=== PATIENT | female | born 1930 | race Caucasian/White ===

== ENCOUNTER 2016-12-24 08:13 | Emergency (ER) | payer MEDICARE ==
[2016-12-24] MEDS ORDERED: Levalbuterol 1.25MG/0.5ML NEB INH ONE (08:57)
[2016-12-24] MEDS ORDERED: Ipratropium 0.5MG/2.5ML NEB* 0.5 MG/2.5 ML NEB.SOLN INH ONE (08:58)
--- NOTE | 2016-12-24 09:06 | UC ---
Respiratory Complaint HPI - HPI Summary HPI Summary: Sudden onset of cough, dyspnea and chills last night. Some sputum. Burning sensation in ches.t Has been on Clindamycin 900mg daily for dental work. Also headache and chronic rhinorrhea. Pos for ill contact. . No sore throat. - History of Current Complaint Chief Complaint: UCRespiratory Stated Complaint: COUGH,DEGROOT,CHEST BURNING Hx Obtained From: Patient Hx Last Menstrual Period: age 43 ?: No Onset/Duration: Sudden Onset, Lasting Hours Timing: Intermittent Episodes Severity Initially: Moderate Severity Currently: Moderate Pain Intensity: 0 Pain Scale Used: 0-10 Numeric Character: Sputum Description: - Yellow. Aggravating Factors: Deep Breaths Alleviating Factors: Nothing - Did not use her bronchodilator. Associated Signs And Symptoms: Positive: Dyspnea, Chills, Wheezing, Nasal Congestion - Risk Factors Pulmonary Embolism Risk Factors: Negative Cardiac Risk Factors: Hypertension, Elevated Lipids Pseudomonas Risk Factors: Chronic Lung Disease Tuberculosis Risk Factors: Negative - Allergies/Home Medications Allergies/Adverse Reactions: Allergies Allergy/AdvReac Type Severity Reaction Status Date / Time Amoxicillin AdvReac Intermediate stomach Verified 12/24/16 08:30 pain Cats Allergy Difficulty Uncoded 12/24/16 08:30 Breathing/Wheezing PMH/Surg Hx/FS Hx/Imm Hx Previously Healthy: No - Copd Endocrine History Of: Denies: Diabetes, Thyroid Disease Cardiovascular History Of: Reports: Hypertension Denies: Cardiac Disorders Respiratory History Of: Reports: COPD, Asthma GI/ History Of: Denies: Ulcer - Surgical History Surgical History: Yes Surgery Procedure, Year, and Place: Appendectomy, 2012, L shoulder x 2 - Social History Alcohol Use: None Substance Use Type: None Smoking Status (MU): Former Smoker Type: Cigarettes Amount Used/How Often: <1 PPD Length of Time of Smoking/Using Tobacco: 23 Years When Did the Patient Quit Smoking/Using Tobacco: ~1983 - Immunization History Most Recent Influenza Vaccination: 2016 Review of Systems Constitutional: Chills Skin: Negative Eyes: Negative ENT: Nasal Discharge Respiratory: Shortness Of Breath, Cough, Other - chest "gomez" Cardiovascular: Negative Gastrointestinal: Negative Genitourinary: Negative Motor: Negative Neurovascular: Negative Musculoskeletal: Negative Neurological: Negative Psychological: Negative All Other Systems Reviewed And Are Negative: Yes Physical Exam Triage Information Reviewed: Yes Appearance: Well-Appearing, Well-Nourished - Mild shortness of breath. Vital Signs: Initial Vital Signs Temp 98.9 F 12/24/16 08:27 Pulse 86 12/24/16 08:27 Resp 20 12/24/16 08:27 BP 142/71 12/24/16 08:27 Pulse Ox 100 12/24/16 08:27 Vital Signs Reviewed: Yes Eye Exam: Normal Eyes: Positive: Conjunctiva Clear, Conjunctiva Inflamed ENT: Positive: Nasal drainage - clear, for several months. Dental Exam: Normal Neck: Positive: Supple, Nontender, No Lymphadenopathy Respiratory: Positive: Chest non-tender, Respiratory distress - mild, Decreased breath sounds, Wheezing - mild wheezing Cardiovascular: Positive: RRR, No Murmur, Pulses Normal, Brisk Capillary Refill Abdomen Description: Positive: Nontender, No Organomegaly, Soft Bowel Sounds: Positive: Present Musculoskeletal Exam: Normal Neurological: Positive: Alert, Muscle Tone Normal Psychological Exam: Normal Skin Exam: Normal UC Diagnostic Evaluation - Laboratory O2 Sat by Pulse Oximetry: 100 Respiratory Course/Dx - Differential Dx/Diagnosis Differential Diagnosis/HQI/PQRI: Bronchitis Provider Diagnoses: acute bronchitis Discharge - Discharge Plan Condition: Improved Disposition: HOME Prescriptions: Albuterol 2.5MG/3ML (0.083%)* [Ventolin 2.5 MG/3 ML NEB.RUMA*] 2.5 mg INH Q6H # 30 neb.ruma Albuterol HFA INHALER* [Ventolin HFA Inhaler*] 2 puff INH Q4H PRN #1 mdi PRN Reason: Shortness Of Breath Patient Education Materials: Acute Bronchitis (ED) Referrals: Sylvester Callaway DO [Primary Care Provider] - Additional Instructions: as tolerated Use the nebulizer as needed when at home. use the puffer with albuterol when needed for shortness of breath and cough when not using the nebulizer. run humidifier. Mucinex DM or plain , 1 tab every 12 hours as needed.
[2016-12-24] MEDS ORDERED: Levalbuterol 0.63MG/3ML NEB INH ONE ×2 (09:10)
[2016-12-24 10:39] VITALS: BP 146/78
== END 2016-12-24 10:40 | disposition home or self-care (01) ==
LOC: UCCORT 08:13
DX: J20.9 Acute bronchitis, unspecified (principal); Z88.1 Allergy status to other antibiotic agents; Z87.891 Personal history of nicotine dependence
CPT/HCPCS: 93005; 99212; A9270-GY; G0463; J7644

== ENCOUNTER 2016-12-25 07:42 | Emergency (ER) | payer MEDICARE ==
[2016-12-25 08:05] VITALS: BP 132/51
--- NOTE | 2016-12-25 08:33 | UC ---
Respiratory Complaint HPI - HPI Summary HPI Summary: 86 yo female seen here yesterday Since her visit yesterday she has developed fever/rigors/headache in addition to her cough/wheezing no n/v/d - History of Current Complaint Chief Complaint: UCRespiratory Stated Complaint: RECHECK SEVERE COUGH/SHORTNESS BREATH Time Seen by Provider: 12/25/16 08:24 Hx Obtained From: Patient Hx Last Menstrual Period: age 43 Onset/Duration: Sudden Onset, Lasting Days - < 48 hours Timing: Constant Severity Initially: Mild Severity Currently: Moderate Pain Intensity: 4 Pain Scale Used: 0-10 Numeric Character: Cough: Nonproductive Alleviating Factors: Nothing Associated Signs And Symptoms: Positive: Fever, Chills, Wheezing, Nasal Congestion - Allergies/Home Medications Allergies/Adverse Reactions: Allergies Allergy/AdvReac Type Severity Reaction Status Date / Time Amoxicillin AdvReac Intermediate stomach Verified 12/25/16 07:59 pain Cats Allergy Difficulty Uncoded 12/25/16 07:59 Breathing/Wheezing Home Medications: Home Medications Guaifenesin/Pseudo 600/60(NF) [Mucinex D 600/60 (NF)] 1 tab PO BID PRN 12/25/16 [History Confirmed 12/25/16] PMH/Surg Hx/FS Hx/Imm Hx Endocrine History Of: Denies: Diabetes, Thyroid Disease Cardiovascular History Of: Reports: Hypertension Denies: Cardiac Disorders Respiratory History Of: Reports: COPD, Asthma GI/ History Of: Denies: Ulcer - Surgical History Surgical History: Yes Surgery Procedure, Year, and Place: Appendectomy, 2012, L shoulder x 2 - Family History Known Family History: Positive: Hypertension - Social History Alcohol Use: None Substance Use Type: None Smoking Status (MU): Former Smoker Type: Cigarettes Amount Used/How Often: <1 PPD Length of Time of Smoking/Using Tobacco: 23 Years When Did the Patient Quit Smoking/Using Tobacco: ~1983 - Immunization History Most Recent Influenza Vaccination: 2016 Review of Systems Constitutional: Fever, Chills Skin: Negative Eyes: Negative ENT: Nasal Discharge Respiratory: Shortness Of Breath, Cough Cardiovascular: Negative Gastrointestinal: Negative Genitourinary: Negative Motor: Negative Neurovascular: Negative Musculoskeletal: Myalgia Neurological: Headache Psychological: Negative All Other Systems Reviewed And Are Negative: Yes Physical Exam Triage Information Reviewed: Yes Appearance: Well-Appearing, No Pain Distress, Well-Nourished Vital Signs: Initial Vital Signs Temp 101.2 F 12/25/16 08:01 Pulse 99 12/25/16 08:01 Resp 20 12/25/16 08:01 BP 132/51 12/25/16 08:01 Pulse Ox 98 12/25/16 08:01 Vital Signs Reviewed: Yes Eyes: Positive: Conjunctiva Clear ENT: Positive: Nasal congestion. Negative: Hearing grossly normal - bilat HAs, Tonsillar swelling, Tonsillar exudate, Trismus, Muffled/hoarse voice Dental: Negative: Cervical Lymphadenopathy Neck: Positive: Supple, Nontender. Negative: Enlarged Nodes @ Respiratory: Positive: Normal breath sounds, No respiratory distress, No accessory muscle use, Other: - wheezing with forced expiration Cardiovascular: Positive: RRR Musculoskeletal: Positive: ROM Intact, No Edema Neurological: Positive: Alert, Muscle Tone Normal Psychological Exam: Normal Skin Exam: Normal UC Diagnostic Evaluation - Laboratory O2 Sat by Pulse Oximetry: 98 - normal/not hypoxi - Radiology Xray Interpretation: No Acute Changes Radiology Interpretation Completed By: Radiologist - EKG Cardiac Rate: NL Cardiac Rhythm: Sinus: Normal ST Segment: Non-Specific - LVH with strain, unchanged from yesterday Respiratory Course/Dx - Differential Dx/Diagnosis Provider Diagnoses: Influenza Discharge - Discharge Plan Condition: Stable Disposition: HOME Prescriptions: Ondansetron TAB* [Zofran Tab*] 4 mg PO Q6H PRN #10 tab PRN Reason: Nausea Oseltamivir CAP* [Tamiflu CAP*] 75 mg PO BID #10 cap Prednisone [Deltasone] 20 mg PO DAILY #5 tab Patient Education Materials: Influenza (ED) Referrals: Sylvester Callaway DO [Primary Care Provider] - Additional Instructions: rest fluids tylenol recheck for worsening symptoms see your MD Thursday as planned
--- NOTE | 2016-12-25 08:52 | RAD ---
INDICATION: Fever and cough. COMPARISON: Comparison is made with prior chest x-ray study from April 24, 2008. TECHNIQUE: Dual-energy PA and lateral views of the chest were obtained. FINDINGS: The heart is within normal limits in size. Mediastinal and hilar contours appear within normal limits. The lungs are hyperinflated and clear. No pleural effusion is seen. IMPRESSION: FINDINGS CONSISTENT WITH COPD, NO EVIDENCE FOR ACUTE FINDING.
[2016-12-25] MEDS ORDERED: Ibuprofen TAB* 600 MG PO ONE (09:22)
== END 2016-12-25 09:36 | disposition home or self-care (01) ==
LOC: UCCORT 07:42
DX: J11.1 Influenza due to unidentified influenza virus with other respiratory manifestations (principal); Z88.1 Allergy status to other antibiotic agents; Z87.891 Personal history of nicotine dependence
CPT/HCPCS: 71020; 87502; 93005; 99212; A9270-GY; G0463

== ENCOUNTER 2017-01-03 08:45 | Emergency (ER) | payer MEDICARE ==
[2017-01-03 09:02] VITALS: BP 126/48
--- NOTE | 2017-01-03 09:16 | UC ---
Respiratory Complaint HPI - History of Current Complaint Chief Complaint: UCGeneralIllness Stated Complaint: PERSISTENT COUGH Time Seen by Provider: 01/03/17 09:04 Hx Obtained From: Patient Hx Last Menstrual Period: age 43 ?: No Onset/Duration: Gradual Onset, Lasting Weeks - 2 1/2, Still Present Timing: Constant Severity Initially: Mild Severity Currently: Moderate Character: Cough: Nonproductive Aggravating Factors: Exertion, Deep Breaths Alleviating Factors: Bronchodilator - and did have some improvement with 5 day course of prednisone. Associated Signs And Symptoms: Positive: Dyspnea, Wheezing, URI Related History: Seasonal Allergies - Risk Factors Pulmonary Embolism Risk Factors: Negative Cardiac Risk Factors: Negative Pseudomonas Risk Factors: Negative - Allergies/Home Medications Allergies/Adverse Reactions: Allergies Allergy/AdvReac Type Severity Reaction Status Date / Time Amoxicillin AdvReac Intermediate stomach Verified 01/03/17 09:01 pain Cats Allergy Difficulty Uncoded 01/03/17 09:01 Breathing/Wheezing PMH/Surg Hx/FS Hx/Imm Hx Endocrine History Of: Denies: Diabetes, Thyroid Disease Cardiovascular History Of: Reports: Hypertension Denies: Cardiac Disorders Respiratory History Of: Reports: COPD, Asthma GI/ History Of: Denies: Ulcer - Surgical History Surgical History: Yes Surgery Procedure, Year, and Place: Appendectomy, 2012, L shoulder x 2 - Family History Known Family History: Positive: Hypertension - Social History Occupation: Retired Lives: Alone Alcohol Use: None Substance Use Type: None Smoking Status (MU): Former Smoker Type: Cigarettes Amount Used/How Often: <1 PPD Length of Time of Smoking/Using Tobacco: 23 Years Have You Smoked in the Last Year: No When Did the Patient Quit Smoking/Using Tobacco: ~1983 - Immunization History Most Recent Influenza Vaccination: 2016 Review of Systems Skin: Rash - over lips Respiratory: Cough Gastrointestinal: Vomiting - post tussive emesis. All Other Systems Reviewed And Are Negative: Yes Physical Exam Triage Information Reviewed: Yes Appearance: No Pain Distress, Well-Nourished, Ill-Appearing Vital Signs: Initial Vital Signs Temp 97.4 F 01/03/17 08:54 Pulse 77 01/03/17 08:54 Resp 18 01/03/17 08:54 BP 126/48 01/03/17 08:54 Pulse Ox 95 01/03/17 08:54 Vital Signs Reviewed: Yes Eyes: Positive: Conjunctiva Clear ENT: Positive: Pharynx normal, Nasal congestion, TMs normal Neck exam: Normal Respiratory: Positive: Decreased breath sounds - mild diffuse, Wheezing - Expiratory especially with cough. Cardiovascular Exam: Normal Musculoskeletal Exam: Normal Neurological Exam: Normal Psychological Exam: Normal Skin: Positive: rashes - cold sores on the upper lip. Diagnostic Evaluation - Laboratory O2 Sat by Pulse Oximetry: 95 Respiratory Course/Dx - Differential Dx/Diagnosis Differential Diagnosis/HQI/PQRI: Exacerbation Of COPD, Lower Resp Infection, Sinusitis Provider Diagnoses: COPD with acute exacerbation. Discharge - Discharge Plan Condition: Stable Disposition: HOME Prescriptions: DOXYcycline CAP(*) [DOXYcycline 100MG CAP(*)] 100 mg PO BID #20 cap predniSONE TAB* [Deltasone TAB*] 20 mg PO DAILY #18 tab Patient Education Materials: COPD (Chronic Obstructive Pulmonary Disease) (ED) , Bronchospasm (ED), Prednisone (By mouth), Doxycycline (By mouth)
== END 2017-01-03 09:37 | disposition home or self-care (01) ==
LOC: UCCORT 08:45
DX: J44.1 Chronic obstructive pulmonary disease with (acute) exacerbation (principal); Z88.1 Allergy status to other antibiotic agents; Z87.891 Personal history of nicotine dependence
CPT/HCPCS: 99212; G0463

== ENCOUNTER 2017-02-21 08:25 | Emergency (ER) | payer MEDICARE ==
[2017-02-21 09:37] VITALS: BP 161/73
--- NOTE | 2017-02-21 09:44 | UC ---
Respiratory Complaint HPI - HPI Summary HPI Summary: triage note :"Cough started 3 days, wheezing for 2 days and worsening last night ". Had a hard time sleeping last night b/c cough and wheezing. she was dxd with the flu this season (despite flu shot) and was treated here with alb MDI and prednisone x 10 days. Sh ehas fully recovered. She used the alb last night w/o much relief. No fever. + h/o COPD per dtr. She started using flonase yesterday for PND. denies sinus pain/pressure. 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 She is here initially with her dtr Malena, and then 2nd dtr came during neb treatment. - History of Current Complaint Chief Complaint: UCRespiratory Stated Complaint: COUGH,WHEEZING (3DAYS) Time Seen by Provider: 02/21/17 09:43 Hx Last Menstrual Period: age 43 - Allergies/Home Medications Allergies/Adverse Reactions: Allergies Allergy/AdvReac Type Severity Reaction Status Date / Time Amoxicillin AdvReac Intermediate stomach Verified 02/21/17 08:53 pain Cats Allergy Difficulty Uncoded 02/21/17 08:53 Breathing/Wheezing Home Medications: Home Medications Fluticasone NASAL SPRAY 50MCG* [Flonase NASAL SPRAY 50MCG*] 2 spray BOTH NARES DAILY 02/21/17 [History Confirmed 02/21/17] PMH/Surg Hx/FS Hx/Imm Hx Previously Healthy: Yes Endocrine History Of: Denies: Diabetes, Thyroid Disease Cardiovascular History Of: Reports: Hypertension Denies: Cardiac Disorders Respiratory History Of: Reports: COPD, Asthma GI/ History Of: Denies: Ulcer - Surgical History Surgical History: Yes Surgery Procedure, Year, and Place: Appendectomy, 2012, L shoulder x 2 - Family History Known Family History: Positive: Hypertension - Social History Alcohol Use: None Substance Use Type: None Smoking Status (MU): Former Smoker Type: Cigarettes Amount Used/How Often: <1 PPD Length of Time of Smoking/Using Tobacco: 23 Years Have You Smoked in the Last Year: No When Did the Patient Quit Smoking/Using Tobacco: ~1983 - Immunization History Most Recent Influenza Vaccination: 2016 Review of Systems Constitutional: Negative Skin: Negative Eyes: Negative ENT: Other - +PND. Respiratory: Cough, Other - wheezing Cardiovascular: Negative Gastrointestinal: Negative Genitourinary: Negative Motor: Negative Neurovascular: Negative Musculoskeletal: Negative Neurological: Negative Psychological: Negative All Other Systems Reviewed And Are Negative: Yes Physical Exam Triage Information Reviewed: Yes Appearance: Well-Appearing, No Pain Distress, Well-Nourished - she looks lenka , smiling, very pleasant. Well dressed with make up. She did not cough at all during entire encounter until the end when I mentioned it. Vital Signs: Initial Vital Signs Temp 97.7 F 02/21/17 08:42 Pulse 65 02/21/17 08:42 Resp 20 02/21/17 08:42 BP 170/76 02/21/17 08:42 Pulse Ox 99 02/21/17 08:42 Vital Signs Reviewed: Yes Eye Exam: Normal ENT Exam: Normal ENT: Positive: Pharyngeal erythema - +PND, no exudate., TMs normal, Other: - no sinus tenderness. Negative: Tonsillar swelling, Tonsillar exudate, Muffled/ hoarse voice Dental Exam: Normal Neck exam: Normal Neck: Positive: Supple, Nontender, No Lymphadenopathy Respiratory Exam: Normal Respiratory: Positive: Lungs clear, No respiratory distress, No accessory muscle use, Decreased breath sounds - slight with minimal wheezing at lower lobes.. Negative: Crackles, Rhonchi, Stridor Cardiovascular Exam: Normal Cardiovascular: Positive: RRR, No Murmur, Pulses Normal, Brisk Capillary Refill Abdominal Exam: Normal Abdomen Description: Positive: Nontender, Soft Musculoskeletal Exam: Normal Neurological Exam: Normal Psychological Exam: Normal Skin Exam: Normal UC Diagnostic Evaluation - Laboratory O2 Sat by Pulse Oximetry: 97 Respiratory Course/Dx - Course Course Of Treatment: ALb neb given here with resolution of the minimal wheezing that was there and improved breath sounds to nml. No coughing, no fever, she looks great and does not appear to be ill. She verbalizes that she is usually given abx for bronchitis and I reassured them that bronchitis is considered to be viral and there are no clinical indications of any bacterial infections at this time. Malena has a neb that she can borrow. - Differential Dx/Diagnosis Differential Diagnosis/HQI/PQRI: Asthma, Bronchitis, Exacerbation Of COPD, Lower Resp Infection, Sinusitis Provider Diagnoses: Bronchitis - mild, Post nasal drip Discharge - Discharge Plan Condition: Stable Disposition: HOME Prescriptions: Albuterol 2.5MG/3ML (0.083%)* [Ventolin 2.5 MG/3 ML NEB.RUMA*] 2.5 mg INH Q4H #1 neb.ruma Benzonatate CAP* [Tessalon 100 MG CAP*] 100 mg PO TID PRN #30 cap PRN Reason: Cough Patient Education Materials: Acute Bronchitis (ED), How to Use a Nebulizer (ED) Referrals: Sylvester Callaway, [Primary Care Provider] - 3 Days Additional Instructions: We have discussed why you don't need an antibiotic, that there are no signs of bacterial infection. No pneumonia sounds in your lungs, no fever and great oxygen level. The albuterol will help open up your lungs/wheezing that you are prone to with COPD exacerbation. A humidifier may help. Avoid OTC cough meds in your age group.
[2017-02-21] MEDS ORDERED: Albuterol 2.5 MG/3 ML NEB.SOL* (0.083%) INH ONE (09:51)
== END 2017-02-21 10:46 | disposition home or self-care (01) ==
LOC: UCCORT 08:25
DX: J40 Bronchitis, not specified as acute or chronic (principal); R09.82 Postnasal drip; I10 Essential (primary) hypertension; Z88.1 Allergy status to other antibiotic agents; Z87.891 Personal history of nicotine dependence
CPT/HCPCS: 99202; G0463

== ENCOUNTER 2018-10-20 09:29 | Emergency (ER) | payer MEDICARE ==
--- OUTSIDE RECORDS SUMMARY | 2018-10-20 10:17 | XMS REPORT | Continuity of Care Document ---
:1930 External Reference #:[id number] Author Name Noemi Irwin Care Team Providers Name Role Phone Scarlett Dorado MD Primary Care Physician Unavailable Payers Type Date Identification Numbers Payment Provider Subscriber Policy Number: [id number] Medicare Aleshia Asencio PayID: [id number] [address] [place] [address] [address]: [id number] [facility] Aleshia Asencio PayID: [id number] [address] [place] [address] Advance Directives Description No Information Available Problems Date Description Provider Status Onset: 05/07/2018 Palpitations Denis Emerson M.D., [facility], [facility] Active Onset: 05/07/2018 Difficulty breathing Denis Emerson M.D., [facility] Active Onset: 02/05/2015 Impacted lanre Ibarra M.D. Active Family History Date Family Member(s) Problem(s) Comments General Heart Disease General Asthma Father due to Stroke () Mother due to Cancer () - female organs Social History Type Date Description Comments Sex Unknown Marital Status Lives With Alone Occupation Retired Cigarette Use Quit 30 Years Ago Tobacco Use Start: Unknown Never Smoked Cigars Tobacco Use Start: Unknown Never Smoked A Pipe Smokeless Tobacco Never Used Smokeless Tobacco ETOH Use Occasionally consumed wine in the past Tobacco Use Start: Unknown End: Patient is a former smoker Quit 1977 Unknown Recreational Drug Use Denies Drug Use Smoking Status Reviewed: 10/04/18 Patient is a former smoker Quit 1977 Exercise Type/Frequency Does not exercise Allergies, Adverse Reactions, Alerts Date Description Reaction Status Severity Comments 12/26/2013 Amoxicillin stomach cramps Active 04/20/2017 Augmentin Active 05/07/2018 Norvasc Active Jittery,diarrhea Medications Medication Date Status Form Strength Qnty SIG Indications Ordering Provider Toprol XL Active Tablets 25mg 1 by Unknown 000 ER 24HR mouth twice daily Aspirin 81 Active Tablets 81mg po qd Unknown 000 DR Vitamin D-1000 Active Tablets 1000Unit 1 tab po Unknown 000 qd Simvastatin Active Tablets 20mg take 1 Unknown 000 tablet every other day Multivitamin Active Tablets 1 by Unknown Adult 000 mouth every day Ventolin HFA Active Aerosol 108(90Base 2 puffs Unknown 000 ) mcg/Act by mouth four times a day as needed Zyrtec Allergy Active Tablets 10mg 1 by Unknown 000 mouth every day as needed Cyanocobalamin Active Tablets 500mcg 1 tab Unknown 000 by mouth every other day Zocor Hx Tablets 20mg 1 po qhs Unknown 000 - 017 Vitamin B-12 Hx Tablets 100mcg 1 by Unknown 000 - Sub mouth every 018 day Norvasc Hx Tablets 1 by Unknown 000 - mouth every 018 day Caltrate 600+D Hx Tablets 600-200mg- 1 tab by Unknown 000 - Unit mouth twice 018 daily Medications Administered in Office Medication Date Status Form Strength Qnty SIG Indications Ordering Provider Inj, Administered Injection Denis Mike Regadenoson, 018 Ki, 0.1 MG M.DVanessa, FACC, FASNC Technetium TC Administered Injection Denis Mike 99M 018 Claudine Emerson M.D., FACC, Per Unit Dose FASNC Up To 40 Millicuries Technetium TC Administered Injection Denis Mike 99M 018 Claudine Emerson M.D., FACC, Per Unit Dose FASNC Up To 40 Millicuries Immunizations Description No Information Available Vital Signs Date Vital Result Comment 10/04/2018 2:58pm Height 61.25 inches 5'1.25" Weight 154.00 lb BP Systolic 138 mmHg BP Diastolic 70 mmHg BMI (Body Mass Index) 28.9 kg/m2 08/02/2018 12:50pm Height 61.25 inches 5'1.25" Weight 153.25 lb with shoes Heart Rate 70 /min reg BP Systolic Sitting 130 mmHg BP Diastolic Sitting 70 mmHg BP Systolic Standing 130 mmHg BP Diastolic Standing 82 mmHg Respiratory Rate 16 /min Pain Level 0 BMI (Body Mass Index) 28.7 kg/m2 05/07/2018 1:36pm Height 61.25 inches 5'1.25" Weight 156.00 lb declined to remove shoes Heart Rate 60 /min BP Systolic 142 mmHg Ra Large Cuff BP Diastolic 72 mmHg Ra Large Cuff BP Systolic Sitting 144 mmHg LA Large Cuff BP Diastolic Sitting 76 mmHg LA Large Cuff BP Systolic Standing 116 mmHg LA Large Cuff BP Diastolic Standing 76 mmHg LA Large Cuff Respiratory Rate 16 /min Pain Level 0 O2 % BldC Oximetry 97 % BMI (Body Mass Index) 29.2 kg/m2 04/05/2018 3:04pm Height 63 inches 5'3" Weight 157.00 lb BP Systolic Sitting 116 mmHg BP Diastolic Sitting 68 mmHg Respiratory Rate 16 /min Pain Level 0 BMI (Body Mass Index) 27.8 kg/m2 09/28/2017 2:16pm Height 63 inches 5'3" Weight 157.00 lb Heart Rate 66 /min BP Systolic Sitting 124 mmHg BP Diastolic Sitting 68 mmHg Respiratory Rate 24 /min Pain Level 0 BMI (Body Mass Index) 27.8 kg/m2 04/20/2017 2:10pm Height 63 inches 5'3" Weight 157.00 lb Heart Rate 88 /min BP Systolic Sitting 122 mmHg BP Diastolic Sitting 74 mmHg Respiratory Rate 20 /min Pain Level 0 BMI (Body Mass Index) 27.8 kg/m2 10/27/2016 1:50pm Height 63 inches 5'3" Weight 159.00 lb Heart Rate 74 /min BP Systolic 122 mmHg BP Diastolic 66 mmHg BMI (Body Mass Index) 28.2 kg/m2 06/30/2016 1:24pm Height 63 inches 5'3" Weight 156.00 lb Heart Rate 76 /min BP Systolic Sitting 168 mmHg BP Diastolic Sitting 80 mmHg BMI (Body Mass Index) 27.6 kg/m2 02/18/2016 1:35pm Heart Rate 76 /min BP Systolic Sitting 120 mmHg BP Diastolic Sitting 80 mmHg 08/13/2015 1:44pm Heart Rate 70 /min BP Systolic Sitting 126 mmHg BP Diastolic Sitting 82 mmHg 02/05/2015 1:22pm Heart Rate 76 /min BP Systolic Sitting 122 mmHg BP Diastolic Sitting 80 mmHg 08/07/2014 1:08pm Heart Rate 70 /min BP Systolic Sitting 124 mmHg BP Diastolic Sitting 80 mmHg 12/26/2013 1:49pm Heart Rate 72 /min BP Systolic 124 mmHg BP Diastolic 80 mmHg Results Description No Information Available Procedures Date Code Description Status 10/04/2018 31029 Remove Impacted Cerumen Completed 07/12/2018 16067 Stress Test Completed 07/12/2018 76830 Myocardial Perfusion Imaging Tomographic (Spect) Multiple Completed Studies 05/29/2018 39808 Mobile Cardiovascular Telemetry Over 24 HR Up To 30 Days Completed 05/07/2018 72806 EKG Tracing & Interpretation Completed 04/05/2018 39504 Remove Impacted Cerumen Completed 09/28/2017 36030 Remove Impacted Cerumen Completed 04/20/2017 03561 Remove Impacted Cerumen Completed 10/27/2016 85280 Remove Impacted Cerumen Completed 06/30/2016 85068 Remove Impacted Cerumen Completed 02/18/2016 61075 Remove Impacted Cerumen Completed 08/13/2015 48167 Remove Impacted Cerumen Completed 02/05/2015 99210 Remove Impacted Cerumen Completed 08/07/2014 84862 Remove Impacted Cerumen Completed 12/26/2013 72902 Remove Impacted Cerumen Completed 08/10/2012 66150 Rad Exam; Wrist Limited, 2 Views Completed 07/26/2012 69795 Rad Exam; Wrist Limited, 2 Views Completed 07/26/2012 44551 Short Arm Cast Application Completed 07/12/2012 62388 Rad Exam; Wrist Limited, 2 Views Completed 07/05/2012 27619 Rad Exam; Wrist Limited, 2 Views Completed 07/02/2012 49434 Short Arm Cast Application Completed 07/02/2012 52829 CLST TRMT Distal Radial FX Completed Encounters Type Date Location Provider Dx Diagnosis Office Visit 08/02/2018 [facility] Denis Mike R00.2 Palpitations 1:15p Of Sesar Emerson M.D., FACC, FASNC Office Visit 05/07/2018 [facility] Denis Mike R06.00 Dyspnea, 1:30p [facility] [employer] [facility] AT [facility], unspecified Heriberto FAC, [facility] R00.2 Palpitations Plan of Treatment Future Appointment(s):04/04/2019 3:00 pm - Timoteo Ibarra M.D. at [facility]
[2018-10-20 10:56] VITALS: BP 148/61
--- NOTE | 2018-10-20 11:15 | UC ---
Respiratory Complaint HPI - HPI Summary HPI Summary: Pt presents to with cough. pt states has been present x 2 days, feels wheeze. non productive. mild sore throat. no fever, chills. no catherine, vision changes. mild nasal congestion. Pt with h/o bronchitis and pna so gets worried. No myalgia. no n/v. No rash. no change in bowel bladder. 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 Hx Last Menstrual Period: age 43 Pain Intensity: 0 - Allergies/Home Medications Allergies/Adverse Reactions: Allergies Allergy/AdvReac Type Severity Reaction Status Date / Time amoxicillin Allergy GI Upset Verified 10/20/18 10:49 Home Medications: Home Medications Simvastatin 1 tab EVERY OTHER DAY 10/20/18 [History Confirmed 10/20/18] PMH/Surg Hx/FS Hx/Imm Hx Previously Healthy: Yes Respiratory History: Bronchitis, Pneumonia - Surgical History Surgical History: Yes Surgery Procedure, Year, and Place: Appendectomy, 2012, L shoulder x 2 - Family History Known Family History: Positive: Hypertension, Non-Contributory - Social History Occupation: Retired Lives: Alone Alcohol Use: None Substance Use Type: None Smoking Status (MU): Former Smoker Type: Cigarettes Amount Used/How Often: <1 PPD Length of Time of Smoking/Using Tobacco: 23 Years Have You Smoked in the Last Year: No When Did the Patient Quit Smoking/Using Tobacco: ~1983 - Immunization History Most Recent Influenza Vaccination: 2016 Review of Systems All Other Systems Reviewed And Are Negative: Yes Constitutional: Positive: Fatigue ENT: Positive: Sore Throat, Nasal Discharge Respiratory: Positive: Cough Physical Exam - Summary Physical Exam Summary: Vital Signs Reviewed: Yes A+Ox3, no distress Eyes: Conjunctiva Clear, SEGUN. EOM intact and full ENT: Hearing grossly normal TM x 2 clear, turbiantes inflammed and boggy, + PND , mmoist, uvula midline, no exudate, no erythema Neck: Positive: Supple Respiratory: Positive: mild, intermittent cough + wheeze end exp slight ronchi right upper lobe, No respiratory distress, No accessory muscle use Cardiovascular: RRR nl s1, s2 no m/r CBT <2 sec abd soft + BS nt/nd no guarding, no distension Musculoskeletal Exam: BRONSON x 4 without difficulty Strength Intact, ROM Intact Neurological: Positive: Alert, + sensation throughout Psychological: Positive: Normal Response To Family Skin: Positive: no rash, no ecchymosis Triage Information Reviewed: Yes Vital Signs: Initial Vital Signs Temp 97.6 F 10/20/18 10:51 Pulse 62 10/20/18 10:51 Resp 16 10/20/18 10:51 BP 148/61 10/20/18 10:51 Pulse Ox 99 10/20/18 10:51 UC Diagnostic Evaluation - Laboratory O2 Sat by Pulse Oximetry: 99 - Radiology Radiology Interpretation Completed By: Radiologist - Patient Name: DONG UNDERWOOD Medical Record#: [id number] Re-Evaluation - Re-Evaluation First Eval Change: Improved - pt states feels breathing much improved following neb chest xray no infiltrate lung sounds markedly improved Rx mdi hydrate secretion precatuion steroid if sx continue x 24 hour recommend start abx pt and daughter comfortable and narciso greement with plan Respiratory Course/Dx - Course Course Of Treatment: Pt presents with 48 hours cough, wheeze, post nasal drip and fatigue. Pt denies fever, chills Pt with remote tobacco h. vss. pt with end exp wheeze. pt with ronchi right base. will give duoneb. cxr. reassess. elevated BP - recommend recheck with pcp - Differential Dx/Diagnosis Provider Diagnosis: Acute bronchitis Discharge - Sign-Out/Discharge Documenting (check all that apply): Patient Departure All imaging exams completed and their final reports reviewed: Yes - Discharge Plan Condition: Stable Disposition: HOME Prescriptions: Azithromycin TAB* [Zithromax TAB (Z-GABBY) 250 mg #6 tabs] 2 tab PO .TODAY, THEN 1 DAILY #1 gabby predniSONE TAB* [Deltasone 20 MG TAB*] 20 mg PO DAILY #5 tab Patient Education Materials: Upper Respiratory Infection (ED), Acute Bronchitis (ED) Referrals: Scarlett Dorado MD [Primary Care Provider] - Additional Instructions: -Take prednisone daily as prescribed -Use your albuterol puffer - 2 puffs every 4 hours for the next 2 days - then as needed -Stay well hydrated - avoid excess caffeine and all alcohol -Eat regular, healthy meals -Humidify the air in the room where you sleep - boil water, run a hot steam shower, vaporizer, cups of water by heat register - If you continue with cough tomorrow, develop a fever or shortness of breath - it is recommended you start the antibiotic as prescribed at this time, -- These infections are spread by secretions - do NOT share eating or drinking utensils - clean items you share with other people such as cell phones, computer mouse, TV remote, computer tablets,etc.. Once you have been antibiotics for 2 days, change your toothbrush and your pillowcase. - contact your doctor to schedule a follow-up appointment. Call your doctor, return here or go to the emergency department with any questions or concerns - Billing Disposition and Condition Condition: STABLE Disposition: Home
== END 2018-10-20 11:57 | disposition home or self-care (01) ==
LOC: UCCORT 09:29
DX: J20.9 Acute bronchitis, unspecified (principal); Z88.0 Allergy status to penicillin; Z87.891 Personal history of nicotine dependence
CPT/HCPCS: 71046; 99212; G0463

== ENCOUNTER 2019-10-19 09:37 | Emergency (ER) | payer MEDICARE ==
--- OUTSIDE RECORDS SUMMARY | 2019-10-19 09:44 | XMS REPORT | Continuity of Care Document ---
:1930 External Reference #:[id number] Author Name Evi Somers PA Address [address] [place] [id number] Care Team Providers Name Role Phone Alexa Olson-MD Zahraa - Obstetrics & Care Team Information Rf Design Engineer Gynecology Scarlett Dorado MD - Family Medicine Care Team Information Rf Design Engineer [phone] Problems Active Problems Provider Date History and physical examination, follow-up Florin Stone MD Onset: 2011 Note: s/p appendectomy Derangement of medial meniscus Evi Somers PA Onset: 04/02/2016 Localized, primary osteoarthritis Evi Somers PA Onset: 09/28/2015 Social History Type Date Description Comments Sex Unknown Tobacco Use Start: Unknown End: Quit Quit 25 years ago. Unknown ETOH Use Denies alcohol use Tobacco Use Start: Unknown End: Patient is a former Unknown smoker Recreational Drug Use Denies Drug Use Smoking Status Reviewed: 08/23/19 Patient is a former smoker Enjoy Exercising Patient enjoys exercising Allergies, Adverse Reactions, Alerts Active Allergies Reaction Severity Comments Date Augmentin projectile vomiting 05/13/2010 Amoxicillin 06/17/2012 Medications Active Medications SIG Qnty Indications Ordering Provider Date Baby Aspirin 1 po qd Unknown 81mg Chewtabs Vitamin D 1 daily Unknown 2000mg Vitamin B 12 every other day Unknown Simvastatin 1 by mouth every Unknown Tablets other day Toprol XL 1 by mouth every Unknown Tablets ER day 24HR Advil as directed Unknown 200mg Capsules Medications Administered in Office Medication SIG Qnty Indications Ordering Provider Date Depomedrol 40mg/1cc Evi Somers PA 09/07/2019 (methylprednisolone acetate) Injection Depomedrol 40mg/1cc Evi Somers PA 04/06/2019 (methylprednisolone acetate) Injection Methylprednisolone acetate Evi Somers PA 10/06/2018 (Depomedrol) 80mg injection Injection Methylprednisolone acetate Evi Somers PA 04/07/2018 (Depomedrol) 80mg injection Injection Methylprednisolone acetate Evi Somers PA 09/21/2017 (Depomedrol) 80mg injection Injection Methylprednisolone acetate Evi Somers PA 04/03/2017 (Depomedrol) 80mg injection Injection Methylprednisolone acetate Evi Somers PA 09/26/2016 (Depomedrol) 80mg injection Injection Methylprednisolone Evi Deras PA 04/02/2016 (Depomedrol) 80mg injection Injection Methylprednisolone acetate Evi Somers PA 09/28/2015 (Depomedrol) 80mg injection Injection Immunizations Description No Information Available Vital Signs Date Vital Result Comment 09/07/2019 9:47am BP Systolic Sitting Left Arm 152 mmHg BP Diastolic Sitting Left Arm 89 mmHg 04/06/2019 10:18am BP Systolic 167 mmHg BP Diastolic 81 mmHg Body Temperature 97.6 F Heart Rate 61 /min Height 60.5 inches 5'0.50" Weight 153.00 lb BMI (Body Mass Index) 29.4 kg/m2 BSA (Body Surface Area) 1.68 m2 [place] body weight in kilograms 47 kg O2 % BldC Oximetry 98 % Results Description No Information Available Procedures Date Code Description Status 09/07/2019 Asp./Injection major joint Completed 04/06/201933454 Asp./Injection major joint Completed 06/18/2011 28494743 Mammogram Completed 05/22/2010 36012627 Mammogram Completed 05/19/2009 54499043 Mammogram Completed 10/19/2003 11560175 Colonoscopy Completed Medical Devices Description No Information Available Encounters Description No Information Available Assessments Date Code Description Provider 09/07/2019 M17.12 Unilateral primary osteoarthritis, left knee Evi Somers PA 04/06/2019 M17.12 Unilateral primary osteoarthritis, left knee Evi Somers PA Plan of Treatment Future Appointment(s):02/06/2020 10:00 am - Evi Somers PA at [facility]/07/2019 - Evi Somers PAM17.12 Unilateral primary osteoarthritis, left knee Functional Status Description No Information Available Mental Status Description No Information Available Referrals Description No Information Available
--- OUTSIDE RECORDS SUMMARY | 2019-10-19 09:44 | XMS REPORT | Continuity of Care Document ---
:1930 External Reference #:[id number] Author Name Timoteo Ibarra M.D. (transmitted by agent of provider Renny Perez) Address [address] [place] [id number] Care Team Providers Name Role Phone Deyanira Velasco AU.D - Medical Chemist Care Team Information Supervisor Cell [employer] Sylvester Callaway DO - Family Care Team Information Supervisor [employer] Operation [phone] Medicine Scarlett Dorado MD - Family Medicine Care Team Information Supervisor Cell Operation [phone] Problems Active Problems Provider Date Palpitations Denis Emerson M.D., [facility], [facility] Onset: 05/07/2018 Difficulty breathing Denis Emerson M.D., [facility], [facility] Onset: 05/07/2018 Impacted cerumen Timoteo Ibarra M.D. Onset: 02/05/2015 Social History Type Date Description Comments Sex Unknown Cigarette Use Quit 30 Years Ago Cigarette Use Quit 30 Years Ago Tobacco Use Start: Unknown Never Smoked Cigars Tobacco Use Start: Unknown Never Smoked Cigars Tobacco Use Start: Unknown Never Smoked A Pipe Tobacco Use Start: Unknown Never Smoked A Pipe Smokeless Tobacco Never Used Smokeless Tobacco Smokeless Tobacco Never Used Smokeless Tobacco ETOH Use Occasionally consumes wine ETOH Use Occasionally consumed wine in the past Tobacco Use Start: Unknown End: Patient is a former smoker Quit 1977 Unknown Recreational Drug Use Denies Drug Use Smoking Status Reviewed: 10/04/19 Patient is a former smoker Quit 1977 Exercise Type/Frequency Does not exercise Allergies, Adverse Reactions, Alerts Active Allergies Reaction Severity Comments Date Amoxicillin stomach cramps 12/26/2013 Augmentin 04/20/2017 Norvasc Jittery,diarrhea 05/07/2018 Medications Active Medications SIG Qnty Indications Ordering Date Provider Fiber Complete 2 tabs daily. 60tabs Unknown Tablets Toprol XL 1 by mouth twice Unknown 25mg Tablets ER daily 24HR Aspirin 81 po qd Unknown [address]mg Tablets DR Vitamin D-1000 1 tab po qd Unknown 1000Unit Tablets Simvastatin take 1 tablet Unknown 20mg Tablets every other day Multivitamin Adult 1 by mouth every Unknown Tablets day Cyanocobalamin 1 tab by mouth Unknown 500mcg every other day Tablets Zocor one every Unknown 10mg Tablets evening Medications Administered in Office Medication SIG Qnty Indications Ordering Provider Date Inj, Regadenoson, 0.1 MG Denis Emerson M.D., 07/12/2018 Injection FACC, FASNC Technetium TC 99M Denis Emerson M.D., 07/12/2018 Tetrofosmin, Per Unit Dose FACC, FASNC Up To 40 Millicuries Injection Technetium TC 99M Denis Emerson M.D., 06/14/2018 Tetrofosmin, Per Unit Dose FACC, FASNC Up To 40 Millicuries Injection Immunizations Description No Information Available Vital Signs Date Vital Result Comment 10/04/2019 9:46am Height 61.25 inches 5'1.25" Weight 154.00 lb Heart Rate 58 /min BP Systolic Sitting 124 mmHg BP Diastolic Sitting 66 mmHg Respiratory Rate 18 /min Pain Level 0 O2 % BldC Oximetry 90 % BMI (Body Mass Index) 28.9 kg/m2 04/05/2019 2:37pm Height 61.25 inches 5'1.25" Weight 154.00 lb Heart Rate 64 /min BP Systolic 146 mmHg BP Diastolic 72 mmHg Respiratory Rate 17 /min Pain Level 0 BMI (Body Mass Index) 28.9 kg/m2 Results Description No Information Available Procedures Date Code Description Status 04/05/2019 78912 Remove Impacted Cerumen Completed Medical Devices Description No Information Available Encounters Type Date Location Provider Dx Diagnosis Office Visit 04/05/2019 [facility] Dizziness and 3:00p C.M.A. AT [facility] H61.23 Impacted cerumen, bilateral Assessments Date Code Description Provider 04/05/2019 R42 Dizziness and giddiness Timoteo Ibarra M.D. 04/05/2019 H61.23 Impacted cerumen, bilateral Timoteo Ibarra M.D. Plan of Treatment Future Appointment(s):2020 11:45 am - [facility]2019 - Timoteo Ibarra M.D.R42 Dizziness and [id number] Impacted cerumen, bilateralComments:The patient's cerumen impaction was cleaned without difficulty. I advised her to check her blood pressure she has a machine at home at least when she is feeling the way she has. She has a history ofarrhythmia, she needs to have a full medical workup for syncopal symptoms. Functional Status Description No Information Available Mental Status Description No Information Available Referrals Description No Information Available
[2019-10-19 09:50] VITALS: BP 142/76
--- NOTE | 2019-10-19 10:02 | UC ---
Respiratory Complaint HPI - HPI Summary HPI Summary: 89-year-old woman comes in with chief complaint of one week of upper respiratory tract infection symptoms. She has rhinorrhea. She has a cough. Is postnasal drip. She is producing ochoa colored sputum. Patient reports this feels like bronchitis. She has an albuterol inhaler at home which she states she doesn't use because it doesn't help. - History of Current Complaint Chief Complaint: UCGeneralIllness Stated Complaint: THROAT,SINUSES,COUGH Time Seen by Provider: 10/19/19 09:44 Hx Last Menstrual Period: age 43 Pain Intensity: 0 - Allergies/Home Medications Allergies/Adverse Reactions: Allergies Allergy/AdvReac Type Severity Reaction Status Date / Time amoxicillin Allergy GI Upset Verified 10/19/19 09:49 PMH/Surg Hx/FS Hx/Imm Hx Previously Healthy: Yes Endocrine History: Dyslipidemia Cardiovascular History: Hypertension - Surgical History Surgical History: Yes Surgery Procedure, Year, and Place: Appendectomy, 2012, L shoulder x 2 - Family History Known Family History: Positive: Hypertension, Non-Contributory - Social History Alcohol Use: None Substance Use Type: None Smoking Status (MU): Former Smoker Type: Cigarettes Amount Used/How Often: <1 PPD Length of Time of Smoking/Using Tobacco: 23 Years Have You Smoked in the Last Year: No When Did the Patient Quit Smoking/Using Tobacco: ~1983 - Immunization History Most Recent Influenza Vaccination: 2016 Review of Systems All Other Systems Reviewed And Are Negative: Yes Constitutional: Positive: Other - SEE HPI Skin: Positive: Negative Eyes: Positive: Negative ENT: Positive: Nasal Discharge, Sinus Congestion Respiratory: Positive: Cough, Other - SEE HPI Cardiovascular: Positive: Negative Gastrointestinal: Positive: Negative Motor: Positive: Negative Neurovascular: Positive: Negative Musculoskeletal: Positive: Negative Neurological: Positive: Negative Psychological: Positive: Negative Is Patient Immunocompromised?: No Physical Exam Triage Information Reviewed: Yes Appearance: Well-Appearing, No Pain Distress, Well-Nourished Vital Signs: Initial Vital Signs Temp 97.9 F 10/19/19 09:46 Pulse 78 10/19/19 09:46 Resp 18 10/19/19 09:46 BP 142/76 10/19/19 09:46 Pulse Ox 100 10/19/19 09:46 Vital Signs Reviewed: Yes Eye Exam: Normal Eyes: Positive: Conjunctiva Clear ENT: Positive: Pharyngeal erythema, Nasal congestion, Nasal drainage, TMs normal Neck: Positive: Supple, Nontender Respiratory: Positive: Lungs clear, Normal breath sounds, No respiratory distress Cardiovascular: Positive: RRR Musculoskeletal: Positive: Strength Intact, ROM Intact Neurological: Positive: Alert, Muscle Tone Normal Psychological: Positive: Age Appropriate Behavior Skin Exam: Normal Respiratory Course/Dx - Course Course Of Treatment: Patient has an albuterol inhaler at home and therefore does not need a new prescription for the albuterol. DISCUSSED VIRAL VERSES BACTERIAL INFECTIONS AND THE ROLE OF ANTIBIOTICS. THE PATIENT PREFERS TO BE ON ANTIBIOTICS AT THIS TIME. - Differential Dx/Diagnosis Provider Diagnosis: Bronchitis Discharge ED - Sign-Out/Discharge Documenting (check all that apply): Patient Departure All imaging exams completed and their final reports reviewed: No Studies - Discharge Plan Condition: Stable Disposition: HOME Prescriptions: Azithromyxin GABBY (NF) [Z-Gabby (Zithromax) 250 mg tabs #6] 2 tab PO .TODAY, THEN 1 DAILY #6 tab predniSONE 20 mg TAB [Deltasone 20 MG TAB*] 20 mg PO DAILY #5 tab Patient Education Materials: Acute Bronchitis (ED) Referrals: Scarlett Dorado MD [Primary Care Provider] - Additional Instructions: FOLLOW UP WITH YOUR DOCTOR IF NOT COMPLETELY IMPROVED. GET REEVALUATED SOONER IF NOT IMPROVING OR WORSE OR ANY QUESTIONS OR CONCERNS. - Billing Disposition and Condition Condition: STABLE Disposition: Home
== END 2019-10-19 10:16 | disposition home or self-care (01) ==
LOC: UCCORT 09:37
DX: J40 Bronchitis, not specified as acute or chronic (principal); I10 Essential (primary) hypertension; R09.82 Postnasal drip; R09.89 Other specified symptoms and signs involving the circulatory and respiratory systems; R09.81 Nasal congestion; Z88.0 Allergy status to penicillin; Z87.891 Personal history of nicotine dependence
CPT/HCPCS: 99212; G0463